=== PATIENT | female | born 1990 | race Two or more races ===

== ENCOUNTER 2017-04-29 19:07 | Emergency (ER) | payer OTHER, BC ==
--- NOTE | ~2017-04-29 | CR282 ---
[facility] A Service of [facility] RADIOLOGY TEXT RESULTS PATIENT: FAHAD MESSINA LOCATION: [facility] : [birth year] UNIT #: [id number] AGE: [address]: UDAY WHITAKER APRN SEX: F ORDER DR: [id number] [facility] [address] [place], [place] [address] [id number] E MR#: [id number] Acc #: [id number] NAME: FAHAD MESSINA : 1990 SEX: F STUDY DATE/TIME: 04/29/2017 21:02 UNIT: [facility] ROOM: STUDY DESCRIPTION: CR Wrist Min 3 View Rt Attending Physician: Uday Whitaker Aprn Ordering Physician: Uday Whitaker Aprn Primary Care Physician: Yefri Lay M.D. MEDICAL IMAGING REPORT This report is preliminary unless electronic signature is present EXAM Right wrist, 04/29/17. INDICATION 26-year-old female with pain in the wrist today that began a couple of hours ago. Fell at work and landed on the hand. TECHNIQUE Three views. COMPARISON No comparisons. FINDINGS Wrist evaluation in multiple projections shows normal mineralization of the bony structures about the wrist and satisfactory articular relationship of the radius and ulna to the proximal carpal row and of the distal carpal segments to the metacarpal bases. There is no indication of fracture or dislocation, and no soft tissue radiopaque foreign body is present. No congenital defects are apparent. IMPRESSION Normal right wrist. Dictated by... Jovan Vásquez M.D. THIS IS AN ELECTRONICALLY VERIFIED REPORT Jovan Vásquez M.D. at 04/29/2017 10:28 PM [place] TD: 04/29/2017 22:17 JOB #: [id number] [facility] A Service of [facility] RADIOLOGY TEXT RESULTS PATIENT: FAHAD MESSINA LOCATION: [facility] : 91 UNIT #: [id number] AGE: [address]: UDAY WHITAKER APRN SEX: F ORDER DR: MEDICAL IMAGING REPORT Page 1 of 1 COPY
--- NOTE | ~2017-04-29 | CR94 ---
[facility] A Service of [facility] RADIOLOGY TEXT RESULTS PATIENT: FAHAD MESSINA LOCATION: [facility] : [birth year] UNIT #: [id number] AGE: [address]: UDAY WHITAKER APRN SEX: F ORDER DR: [id number] [facility] [address] [place], [place] [address] [id number] E MR#: [id number] Acc #: [id number] NAME: FAHAD MESSINA. : 1990 SEX: F STUDY DATE/TIME: 04/29/2017 19:52 UNIT: [facility] ROOM: STUDY DESCRIPTION: CR Elbow Min 3 Views Rt Attending Physician: Uday Whitaker Aprn Ordering Physician: Uday Whitaker Aprn Primary Care Physician: Yefri Lay M.D. MEDICAL IMAGING REPORT This report is preliminary unless electronic signature is present EXAM Right elbow. INDICATION Right elbow pain. Fall. Decreased range of motion. FINDINGS There is a nondisplaced fracture involving the radial head. There is a large right elbow effusion. No dislocation. IMPRESSION 1. Nondisplaced fracture of the radial head. 2. Large right elbow effusion. Dictated by... Jon Shepherd M.D. THIS IS AN ELECTRONICALLY VERIFIED REPORT Jon Shepherd M.D. at 04/30/2017 1:17 PM ARABELLA/ronald TD: 04/29/2017 21:27 JOB #: [id number] MEDICAL IMAGING REPORT Page 1 of 1 COPY
[~2017-04-29 19:07] MED LIST: B12 5,000 MCG1 EACH; BUSPIRONE HCL; EFFEXOR75 M3; FE 90 PLUS TAB1 EACH; FLEXERIL PO; IBUPROFEN600 MG; M.V.I. ADULT10 ML
== END 2017-04-29 22:15 | disposition home or self-care (01) ==
LOC: CFTX 19:07 → CED 19:07 → CFTX 19:40
DX: S52.124A Nondisplaced fracture of head of right radius, initial encounter for closed fracture (principal); F17.210 Nicotine dependence, cigarettes, uncomplicated; Z88.8 Allergy status to other drugs, medicaments and biological substances; W01.0XXA Fall on same level from slipping, tripping and stumbling without subsequent striking against object, initial encounter; Y93.89 Activity, other specified; Y92.69 Other specified industrial and construction area as the place of occurrence of the external cause; Y99.0 Civilian activity done for income or pay
CPT/HCPCS: 29125; 73080; 73110; 99283